=== PATIENT | male | born 1995 | race African-American/Black ===

== ENCOUNTER 2017-10-01 12:31 | Emergency (ER) | payer SELFPAY ==
[~2017-10-01] VITALS: Ht 182.9 cm; Wt 116.6 kg
[~2017-10-01 12:31] MED LIST: FLEXERIL10 MG PO; MOTRIN800 MG PO
[2017-10-01 13:03] VITALS: BP 179/82
[2017-10-01] MEDS ORDERED: NAPROSYN500 MG PO (16:02)
== END 2017-10-01 16:15 | disposition home or self-care (01) ==
LOC: EME 12:31
DX: S43.402A Unspecified sprain of left shoulder joint, initial encounter (principal); X50.9XXA Other and unspecified overexertion or strenuous movements or postures, initial encounter
CPT/HCPCS: 73030; 99281; 99284